=== PATIENT | male | born 1935 | race Caucasian/White ===

== ENCOUNTER → 2020-01-09 | Outpatient (CLI) | payer MEDICARE, BC ==
--- NOTE | 2020-01-09 19:04 | XCELERA REPORT ---
[address] [address] Transthoracic Echocardiogram Report Name: ANAYA YEUNG Age: 84 yrs Gender: Male : 1935 Patient Status: Outpatient Patient Location: Study Date: 01/09/2020 03:16 PM History: Pre-op CVS AVR HTN Height: 70 in Weight: 160 lb BSA: 1.9 m2 Procedure: A complete two-dimensional transthoracic echocardiogram was performed (2D, M-mode, spectral and color flow Doppler). The study was technically difficult with many images being suboptimal in quality. Reason For Study: HTN, PROSTHETIC HEART VALVE Previous Evaluation: No previous studies were available. History: Pre-op CVS AVR HTN. Ordering Physician: ELIJAH WOLFF Performed By: Vicki Greene Interpretation Summary The study was technically difficult with many images being suboptimal in quality. Left ventricular systolic function is low normal. The Ejection Fraction estimate is 50-55% The right ventricular systolic function is normal. There is mild to moderate mitral stenosis The gradients through the prosthetic aortic valve are increased for this type of valve suggesting mild stenosis There is a trace amount of tricuspid regurgitation MMode/2D Measurements & Calculations RVDd: 2.6 cm LVIDd: 4.1 cm FS: 28.0 % Ao root diam: 3.3 cm IVSd: 1.1 cm LVIDs: 2.9 cm EDV(Teich): 72.9 ml Ao root area: 8.8 cm2 LVPWd: 0.98 cm ESV(Teich): 33.1 ml EF(Teich): 54.7 % Doppler Measurements & Calculations MV E max magaly: MV dec slope: Ao V2 max: LV V1 max P.6 cm/sec 404.5 cm/sec2 319.5 cm/sec 9.1 mmHg MV dec time: Ao max PG: LV V1 mean P.31 sec 40.8 mmHg 6.1 mmHg Ao V2 mean: LV V1 max: 212.3 cm/sec 150.9 cm/sec Ao mean PG: LV V1 mean: 22.0 mmHg 117.4 cm/sec Ao V2 VTI: 52.5 cmLV V1 VTI: 29.1 cm PA V2 max: TR max magaly: 89.1 cm/sec 236.9 cm/sec PA max P.2 mmHg TR max P.6 mmHg Left Ventricle The left ventricle is normal in size. There is moderate concentric left ventricular hypertrophy. Left ventricular systolic function is low normal. The Ejection Fraction estimate is 50-55%. LV diastolic function not assessed. Regional wall motion abnormalities cannot be excluded due to limited visualization. Right Ventricle The right ventricle is normal size. There is a pacemaker lead in the right ventricle. The right ventricular systolic function is normal. Atria The right atrium is normal. There is a catheter/pacemaker lead seen in the right atrium. The left atrium is mildly dilated. Mitral Valve There is mild to moderate mitral annular calcification. There is mild mitral leaflet calcification. There is mild to moderate mitral stenosis. Mean PG not provided. Valve looks stenotic. MVA b y PHT 2.5 cm2. There is a mild amount of mitral regurgitation. Aortic Valve There is a bioprosthetic aortic valve. AoV=3.19 m/s Mean PG=22 mm Hg Calcification with mild restriction of mobility. The gradients through the prosthetic aortic valve are increased for this type of valve suggesting mild stenosis. Tricuspid Valve The tricuspid valve is not well visualized secondary to technical limitations. There is a trace amount of tricuspid regurgitation. Tricuspid regurgitation jet envelope not well defined to measure RV systolic pressure accurately. Pulmonic Valve The pulmonic valve is normal in structure and function. There is no pulmonic valvular stenosis. There is a trace amount of pulmonic regurgitation. Great Vessels The aortic root is normal size. The inferior vena cava appeared normal and decreased < 50% with respiration (RAP 10-15 mmHg). Effusions There is no pericardial effusion. : ELIJAH WOLFF Anil
== END ==
LOC: SP 14:34
PROVIDERS: ATTEND Internal Medicine
DX: Z01.810 Encounter for preprocedural cardiovascular examination (principal); I10 Essential (primary) hypertension; Z95.2 Presence of prosthetic heart valve
CPT/HCPCS: 93306

== ENCOUNTER → 2020-02-26 | Outpatient (CLI) | payer MEDICARE, BC ==
[2020-02-26 11:34] LABS: HEMATOCRIT 33.8 % (37.9-51.0); HEMOGLOBIN 11.5 g/dL (13.5-17.0); MEAN CORPUSCULAR HEMOGLOBIN 32.3 pg (27.0-33.4); MEAN CORPUSCULAR HGB CONC 33.9 g/dL (32.0-36.0); MEAN CORPUSCULAR VOLUME 95 fl (80-97); PLATELET COUNT 207 10^3/uL (150-450); RED BLOOD COUNT 3.55 10^6/uL (4.35-5.55); RED CELL DISTRIBUTION WIDTH 13.5 % (11.5-14.0)
[2020-02-26 12:37] LABS: ABSOLUTE LYMPHOCYTES# (MANUAL) 21.2 10^3/uL (0.5-4.7); ABSOLUTE MONOCYTES # (MANUAL) 1.3 10^3/uL (0.1-1.4); BASOPHILS % (MANUAL) 0 % (0-2); EOSINOPHILS % (MANUAL) 0 % (0-6); LYMPHOCYTES % (MANUAL) 63 % (13-45); MONOCYTES % (MANUAL) 4 % (3-13); SEGMENTED NEUTROPHILS % (MAN) 31 % (42-78); TOTAL CELLS COUNTED 100
[2020-02-26 12:38] LABS: SMUDGE CELLS PRESENT
[2020-02-26 12:59] LABS: OVALOCYTES 1+; PLATELET COMMENT ADEQUATE; TOXIC GRANULATION SLIGHT
[2020-02-26 13:00] LABS: PLATELET GIANT PRESENT; PLATELET LARGE PRESENT
[2020-02-26 13:18] LABS: WHITE BLOOD COUNT 32.6 10^3/uL (4.0-10.5)
== END ==
LOC: OD 10:41
PROVIDERS: ATTEND Nurse Practitioner Family
DX: J18.8 Other pneumonia, unspecified organism (principal)
CPT/HCPCS: 36415; 85025

== ENCOUNTER 2020-02-29 08:14 | Emergency (ER) | payer MEDICARE, BC ==
--- NOTE | 2020-02-29 10:01 | ER Document Report ---
ED Medical Screen (RME) - General Chief Complaint: Abnormal Lab Results Stated Complaint: ABNORMAL LABS Primary Care Provider: JOSE LACKEY FNP-C [Primary Care Provider] - Follow up as needed Mode of Arrival: Ambulatory Information source: Patient Notes: 84-year-old male presented to ED for complaint of elevated white count of 1 primary care redrew the blood count. He was diagnosed with pneumonia 2 weeks ago started on antibiotics saw his primary care stomach Saúl is white count was still elevated so she gave him another 2 antibiotics and repeated his blood work and his white count is still 22.6. We will get blood urine chest x-ray and he will be seen by another provider. I have greeted and performed a rapid initial assessment of this patient. A comprehensive ED assessment and evaluation of the patient, analysis of test results and completion of medical decision making process will be conducted by an additional ED providers. TRAVEL OUTSIDE OF THE [place] IN LAST 30 DAYS: No - Related Data Allergies/Adverse Reactions: No Known Allergies Allergy (Verified 02/15/20 07:23) Past Medical History - Social History Frequency of alcohol use: Rare Drug Abuse: None - Past Medical History Cardiac Medical History: Reports: Hx Hypercholesterolemia, Hx Hypertension Pulmonary Medical History: Reports: Hx COPD, Hx Pneumonia Renal/ Medical History: Reports: Hx Benign Prostatic Hyperplasia GI Medical History: Reports: Hx Gastroesophageal Reflux Disease Musculoskeltal Medical History: Reports Hx Arthritis Past Surgical History: Reports: Hx Cardiac Surgery - open heart, Hx Orthopedic Surgery - feet Physical Exam - Vital signs Vitals: Temp Pulse Resp BP Pulse Ox 97.5 F 71 16 170/74 H 99 02/29/20 08:19 02/29/20 08:19 02/29/20 08:19 02/29/20 08:19 02/29/20 08:19 Course - Vital Signs Vital signs: Temp Pulse Resp BP Pulse Ox 97.5 F 71 16 170/74 H 99 02/29/20 08:19 02/29/20 08:19 02/29/20 08:19 02/29/20 08:19 02/29/20 08:19 Doctor's Discharge - Discharge Referrals: JOSE LACKEY FNP-C [Primary Care Provider] - Follow up as needed
[2020-02-29 10:42] LABS: HEMATOCRIT 33.2 % (37.9-51.0); HEMOGLOBIN 11.2 g/dL (13.5-17.0); MEAN CORPUSCULAR HEMOGLOBIN 32.1 pg (27.0-33.4); MEAN CORPUSCULAR HGB CONC 33.7 g/dL (32.0-36.0); MEAN CORPUSCULAR VOLUME 95 fl (80-97); PLATELET COUNT 180 10^3/uL (150-450); RED BLOOD COUNT 3.48 10^6/uL (4.35-5.55); RED CELL DISTRIBUTION WIDTH 14.2 % (11.5-14.0)
[2020-02-29 10:59] LABS: ALKALINE PHOSPHATASE 66 U/L (38-126); ANION GAP 6 (5-19); ASPARTATE AMINO TRANSFERASE 32 U/L (17-59); BILIRUBIN,DIRECT 0.2 mg/dL (0.0-0.4); BILIRUBIN,TOTAL 0.9 mg/dL (0.2-1.3); BLOOD UREA NITROGEN 24 mg/dL (7-20); CALCIUM 9.4 mg/dL (8.4-10.2); CARBON DIOXIDE 30 mmol/L (22-30); CHLORIDE 104 mmol/L (98-107); GLUCOSE 94 mg/dL (75-110); POTASSIUM 4.8 mmol/L (3.6-5.0)
--- NOTE | 2020-02-29 11:16 | RADIOLOGY REPORT (SQ) ---
EXAM DESCRIPTION: CHEST 2 VIEWS IMAGES COMPLETED DATE/TIME: 02/29/2020 10:24 am REASON FOR STUDY: Cough congestion elevated white count pneumonia COMPARISON: 02/13/2020 CT imaging EXAM PARAMETERS: NUMBER OF VIEWS: two views TECHNIQUE: Digital Frontal and Lateral radiographic views of the chest acquired. RADIATION DOSE: NA LIMITATIONS: none FINDINGS: LUNGS AND PLEURA: A previously demonstrated anterior segment of the left lower lobe consol idation is no longer demonstrated. Blunting of the left costophrenic angle persists. No pneumothora x. MEDIASTINUM AND HILAR STRUCTURES: No masses or contour abnormalities. HEART AND VASCULAR STRUCTURES: Heart normal size. No evidence for failure. BONES: No acute findings. HARDWARE: Midline surgical changes. Transvenous pacer. OTHER: No other significant finding. IMPRESSION: Significant improvement in the appearance of a previously demonstrated left lower lobe c onsolidation (given differences in modality). No acute findings. TECHNICAL DOCUMENTATION: JOB ID: [id number] 2010 [employer]- All Rights Reserved Reading location - IP/workstation name: [email or web address]
[2020-02-29 11:37] LABS: ABSOLUTE LYMPHOCYTES# (MANUAL) 22.4 10^3/uL (0.5-4.7); ABSOLUTE MONOCYTES # (MANUAL) 0.3 10^3/uL (0.1-1.4); BASOPHILS % (MANUAL) 0 % (0-2); EOSINOPHILS % (MANUAL) 1 % (0-6); LYMPHOCYTES % (MANUAL) 68 % (13-45); MONOCYTES % (MANUAL) 1 % (3-13); SEGMENTED NEUTROPHILS % (MAN) 28 % (42-78); TOTAL CELLS COUNTED 100
[2020-02-29 11:39] LABS: ANISOCYTOSIS SLIGHT; OVALOCYTES 1+; SMUDGE CELLS PRESENT
[2020-02-29 11:40] LABS: PLATELET COMMENT ADEQUATE; PLATELET LARGE PRESENT
[2020-02-29] MEDS ORDERED: NORMAL SALINE 1000 ML 1,000 ML IV ONE ×3 (13:13→14:38)
[2020-02-29 14:23] LABS: APPEARANCE,URINE CLEAR; BILIRUBIN,URINE NEGATIVE (NEGATIVE); COLOR,URINE STRAW; GLUCOSE, URINE NEGATIVE (NEGATIVE); KETONES,URINE NEGATIVE (NEGATIVE); LEUKOCYTE ESTERASE,URINE NEGATIVE (NEGATIVE); NITRITE,URINE NEGATIVE (NEGATIVE); PROTEIN,URINE 30 mg/dL (NEGATIVE); URINE SPECIFIC GRAVITY 1.008; UROBILINOGEN,URINE NEGATIVE mg/dL (<2.0)
--- NOTE | 2020-02-29 15:17 | RADIOLOGY REPORT (SQ) ---
EXAM DESCRIPTION: CT ABD/PELVIS WITH IV ONLY; CT CHEST WITH IMAGES COMPLETED DATE/TIME: 02/29/2020 1:12 pm REASON FOR STUDY: Bilateral inguinal hernia, elevated wbc, lymphocyt; elevated WBC lymphocytes/ rece nt pneumonia COMPARISON: CT chest, abdomen and pelvis, 02/13/2020. CONTRAST TYPE AND DOSE: contrast/concentration: Isovue 350.00 mmol/ml; Total Contrast Delivered: 80. 0 ml; Total Saline Delivered: 55.0 ml RENAL FUNCTION: GFR > 60. TECHNIQUE: CT scan of the chest performed using helical scanning technique with dynamic intravenous contrast injection. Images reviewed with lung, soft tissue and bone windows. Reconstructed coronal a nd sagittal MPR images reviewed. All images stored on PACS. CT scan of the abdomen and pelvis performed with intravenous and oral contrast using helical scanning technique with dynamic intravenous contrast injection. Images reviewed with lung, soft tissue and b one windows. Reconstructed coronal and sagittal MPR images reviewed. Delayed images for evaluation of the urinary system also acquired and evaluated. All images stored on PACS. All CT scanners at this facility use dose modulation, iterative reconstruction, and/or weight based d osing when appropriate to reduce radiation dose to as low as reasonably achievable (ALARA). [facility]: Dose Right [facility]: CareDose [facility]: Dose Right [facility]: Teradose 4D [facility]: [employer] Technologies RADIATION DOSE: CT Rad equipment meets quality standard of care and radiation dose reduction techniq ues were employed. CTDIvol: 7.1 - 7.5 mGy. DLP: 1069 mGy-cm. . LIMITATIONS: None. FINDINGS: CHEST: AXILLAE: No adenopathy. CHEST WALL: Mild gynecomastia. No masses. No subcutaneous air. LUNGS: Trachea has normal caliber and appearance. Background mild pulmonary emphysema is stable. Th ere is improving aeration at the left lung base with mild persistent tree-in-bud and confluent consol idation. Trace left effusion, stable from prior. No new consolidation or ground-glass attenuation. Couple of scattered calcified granulomas are unchanged. No suspicious pulmonary nodules. PLEURA: Trace left effusion. No pneumothorax. THYROID: No masses or significant asymmetry. HILAR AND MEDIASTINAL STRUCTURES: No identified masses or abnormal nodes. AORTA AND GREAT VESSELS: No aneurysm. No dissection. PULMONARY ARTERIES: There is poor opacification of the pulmonary arteries. Within the limits of the examination there is no evidence of pulmonary embolism. HEART: Normal size. No pericardial effusion. HARDWARE AND LIFELINES: Left infraclavicular pacemaker with intact lead wires. Postoperative changes of prior CABG. BONES: No suspicious bone lesions. Spondylosis and degenerative disc disease, stable. OTHER: No other significant finding. ABDOMEN AND PELVIS: LIVER: Liver has normal size and contour. Benign hepatic cyst in the left hepatic lobe is stable. N o suspicious hepatic mass. Hepatic and portal veins are patent. No biliary ductal dilation. SPLEEN: Normal size. No focal lesions. PANCREAS: No masses. No significant calcifications. No adjacent inflammation or peripancreatic flui d collections. Pancreatic duct not dilated. GALLBLADDER: No identified stones by CT criteria. No inflammatory changes to suggest cholecystitis. ADRENAL GLANDS: No significant masses or asymmetry. RIGHT KIDNEY AND URETER: No solid masses. No significant calcifications. No hydronephrosis or hyd roureter. LEFT KIDNEY AND URETER: No solid masses. Nonobstructing 7 mm left renal calculus unchanged from aixa or. No obstructing renal or ureteral calculus. No hydronephrosis or hydroureter. AORTA AND VESSELS: No aneurysm. No dissection. Renal arteries, SMA, celiac without stenosis. RETROPERITONEUM: No retroperitoneal adenopathy, hemorrhage or masses. LARGE AND SMALL BOWEL: Moderate amount of stool throughout the colon. No bowel obstruction. No hector l wall thickening or inflammatory change. APPENDIX: Not visualized. ABDOMINAL WALL: There is a left inguinal hernia containing the sigmoid colon. No fluid in the hernia sac or evidence of colonic obstruction. PERITONEAL CAVITY: No free air. No free fluid. No peritoneal implants or masses. PELVIS: Prostate is enlarged measuring 5.3 x 4.5 cm. Mild mass effect on the urinary bladder. Bladd er has normal contour otherwise. No bladder wall thickening. No pelvic adenopathy or free fluid. C alcified pelvic phleboliths. BONES: Spondylosis and degenerative disc disease. No suspicious bone lesions. Osteoarthritis bilate ral hips. OTHER: No other significant finding. IMPRESSION: 1. Improving aeration at the left lung base with mild persistent residual pneumonia. Trace left effu christopher. 2. Left inguinal hernia contains colon. No bowel obstruction or evidence of incarceration. 3. Moderate stool in the colon and rectum which can be seen with constipation. Clinical correlation. 4. Enlarged prostate gland. Mass effect on the urinary bladder. 5. Nonobstructing 7 mm left renal calculus. No hydronephrosis. TECHNICAL DOCUMENTATION: JOB ID: [id number] Quality ID # [id number]: Final reports with documentation of one or more dose reduction techniques (e.g., Au tomated exposure control, adjustment of the mA and/or kV according to patient size, use of iterative reconstruction technique) 2010 [employer]- All Rights Reserved Reading location - IP/workstation name: [email or web address]
--- NOTE | 2020-02-29 16:07 | ER Document Report ---
Entered by SHAYLA BAJWA SCRIBE 02/29/20 1305 Acting as scribe for:AMPARO ANTUNEZ MD ED General - General Chief Complaint: Abnormal Lab Results Stated Complaint: ABNORMAL LABS Time Seen by Provider: 02/29/20 11:54 Primary Care Provider: JOSE LACKEY FNP-C [Primary Care Provider] - Follow up as needed Mode of Arrival: Ambulatory Information source: Patient Notes: This 84 year old male patient presents to the ED today for evaluation of abnormal lab results. Niece at bedside reports that the patient's PCP called and told the patient come to the ED for evaluation due to having a WBC of 32.6 from blood drawn on 02/25. Patient was diagnosed with pneumonia x2 weeks ago and was started on oral antibiotics, last dose was last night. Patient denies any shortness of breath, fever, chills, night sweats, or unexplained weight loss. He mentions that he does not sleep very well and that he is always tired. TRAVEL OUTSIDE OF THE [place] IN LAST 30 DAYS: No - Related Data Allergies/Adverse Reactions: No Known Allergies Allergy (Verified 02/15/20 07:23) Past Medical History - General Information source: Patient, [facility] Records - Social History Smoking Status: Former Smoker Smoking Education Provided: No Frequency of alcohol use: Rare Drug Abuse: None Family History: Reviewed & Not Pertinent - Past Medical History Cardiac Medical History: Reports: Hx Hypercholesterolemia, Hx Hypertension Pulmonary Medical History: Reports: Hx COPD, Hx Pneumonia Renal/ Medical History: Reports: Hx Benign Prostatic Hyperplasia GI Medical History: Reports: Hx Gastroesophageal Reflux Disease Musculoskeletal Medical History: Reports Hx Arthritis Past Surgical History: Reports: Hx Open Heart Surgery, Hx Orthopedic Surgery - feet Review of Systems - Review of Systems Constitutional: See HPI, Recent illness. denies: Chills, Fever, Weight loss EENT: No symptoms reported Cardiovascular: No symptoms reported Respiratory: See HPI. denies: Short of breath Gastrointestinal: No symptoms reported Genitourinary: No symptoms reported Male Genitourinary: No symptoms reported Musculoskeletal: No symptoms reported Skin: No symptoms reported Hematologic/Lymphatic: No symptoms reported Neurological/Psychological: No symptoms reported -: Yes All other systems reviewed and negative Physical Exam - Vital signs Vitals: Temp Pulse Resp BP Pulse Ox 97.5 F 71 16 170/74 H 99 02/29/20 08:19 02/29/20 08:19 02/29/20 08:19 02/29/20 08:19 02/29/20 08:19 - General General appearance: Alert, Other - Nontoxic appearance In distress: None - HEENT Head: Normocephalic, Atraumatic Eyes: Normal Pupils: PERRL - Respiratory Respiratory status: No respiratory distress Chest status: Nontender Breath sounds: Normal Chest palpation: Normal - Cardiovascular Rhythm: Regular Heart sounds: Normal auscultation Murmur: No Friction rub: No Gallop: None auscultated - Abdominal Inspection: Normal Distension: No distension Bowel sounds: Normal Tenderness: Nontender - Abdomen soft Organomegaly: No organomegaly - Back Back: Normal, Nontender - Extremities General upper extremity: Normal inspection General lower extremity: Normal inspection. No: Edema - Neurological Neuro grossly intact: Yes Orientation: AAOx4 Saad Coma Scale Eye Opening: Spontaneous Saad Coma Scale Verbal: Oriented Saad Coma Scale Motor: Obeys Commands Saad Coma Scale Total: 15 - Psychological Associated symptoms: Normal affect, Normal mood - Skin Skin Temperature: Warm Skin Moisture: Dry Skin Color: Normal Course - Re-evaluation Re-evalutation: 02/29/20 16:00 Patient resting comfortably not showing any signs of distress. - Vital Signs Vital signs: Temp Pulse Resp BP Pulse Ox 98.1 F 71 20 154/82 H 99 02/29/20 14:14 02/29/20 08:19 02/29/20 14:14 02/29/20 14:14 02/29/20 14:14 02/29/20 16:00 Vital signs stable - Laboratory Results Result Diagrams: 02/29/20 10:05 02/29/20 10:05 Laboratory Results Interpreted: 02/29/20 02/29/20 02/29/20 10:05 10:05 13:15 WBC 32.0 H* RBC 3.48 L Hgb 11.2 L Hct 33.2 L RDW 14.2 H Seg Neuts % (Manual) 28 L Lymphocytes % (Manual) 68 H Monocytes % (Manual) 1 L Abs Neuts (Manual) 9.0 H Abs Lymphs (Manual) 22.4 H BUN 24 H Urine Protein 30 H 02/29/20 16:01 Laboratory shows a 32,000 white count H&H is 11 and 33 with a BUN of 24 and urine protein 30. Most likely patient has chronic lymphocytic leukemia. Work- up today shows that there is no solid organ involvement showing increased lymph nodes liver or spleen or lymph node enlargement. Discussed case with Dr. Lauro awan who will follow up with patient as an outpatient. Critical Laboratory Results Reviewed: Yes Attending or Supervising Physician who Reviewed Labs: AMPARO ANTUNEZ Radiology Results Radiology Results Interpreted: 02/29/20 15:45 Abdomen/Pelvis CT 02/29/20 00:00 IMPRESSION: 1. Improving aeration at the left lung base with mild persistent residual pneumonia. Trace left effusion. 2. Left inguinal hernia contains colon. No bowel obstruction or evidence of inc arceration. 3. Moderate stool in the colon and rectum which can be seen with constipation. Clinical correlation. 4. Enlarged prostate gland. Mass effect on the urinary bladder. 5. Nonobstructing 7 mm left renal calculus. No hydronephrosis. Chest X-Ray 02/29/20 09:59 IMPRESSION: Significant improvement in the appearance of a previously demonstrated left lower lobe consolidation (given differences in modality). No acute findings. Chest CT 02/29/20 13:04 IMPRESSION: 1. Improving aeration at the left lung base with mild persistent residual pneumonia. Trace left effusion. 2. Left inguinal hernia contains colon. No bowel obstruction or evidence of incarceration. 3. Moderate stool in the colon and rectum which can be seen with constipation. Clinical correlation. 4. Enlarged prostate gland. Mass effect on the urinary bladder. 5. Nonobstructing 7 mm left renal calculus. No hydronephrosis. 02/29/20 16:02 Chest x-ray shows no significant findings patient has significant improvement of left lower lobe consolidation. No acute findings today. Chest CT chest abdomen pelvis shows improvement in aeration of the left lung base left inguinal hernia contains: No bowel obstruction or incarceration moderate stool in the colon constipation most likely enlarged prostate gland mass-effect on the urinary bladder nonobstructing 7 mm left renal calculus no hydronephrosis. Critical Radiology Results Reviewed: No Critical Results - Consults Dr. Rodrigues, Oncologist Time consulted: 15:45 Consulted provider: follow-up in office Discharge - Discharge Clinical Impression: Leukocytosis, CLL (chronic lymphocytic leukemia) Condition: Stable Disposition: HOME, SELF-CARE Additional Instructions: Today's exam showed that the pneumonia in the left base has improved significantly. The elevated white blood cell count is unrelated to the pneumonia. Most likely this is chronic lymphocytic leukemia. Patient reports that he was told he had a leukemia when he was in [place]. CT scan of chest abdomen and pelvis today showed no solid organ involvement no retroperitoneal or lymph node involvement and chest also was clear of any kind lymphoma involvement. Patient has no fever is hemodynamically stable and nontoxic at this time patient is to be discharged home to be followed up with Dr. Lauro awan, server administrator/oncologist. Dr. Lauro awan will call patient to set up this appointmen t. There are no new prescriptions today. Referrals: JOSE LACKEY, TEZ-C [Primary Care Provider] - Follow up as needed TORY RODRIGUES MD [ACTIVE STAFF] - Follow up in 1 week I personally performed the services described in the documentation, reviewed and edited the documentation which was dictated to the scribe in my presence, and it accurately records my words and actions.
[2020-02-29 16:11] VITALS: BP 172/88
== END 2020-02-29 16:19 | disposition home or self-care (01) ==
LOC: ER 08:14
DX: D72.829 Elevated white blood cell count, unspecified (principal); C91.10 Chronic lymphocytic leukemia of B-cell type not having achieved remission; E78.00 Pure hypercholesterolemia, unspecified; I10 Essential (primary) hypertension; J44.9 Chronic obstructive pulmonary disease, unspecified
CPT/HCPCS: 99285; 96360; 36415; 87040; 83615; 85025; 80053; 81001; 71046; 71260; 74177; J7030

== ENCOUNTER 2020-03-02 08:17 | Emergency (ER) | payer MEDICARE, BC ==
[2020-03-02] MEDS ORDERED: NORMAL SALINE 1000 ML 1,000 ML IV ONE (09:56)
[2020-03-02 10:54] LABS: HEMOGLOBIN 9.7 g/dL (13.5-17.0); MEAN CORPUSCULAR HEMOGLOBIN 32.7 pg (27.0-33.4); MEAN CORPUSCULAR HGB CONC 34.6 g/dL (32.0-36.0); MEAN CORPUSCULAR VOLUME 95 fl (80-97); PLATELET COUNT 145 10^3/uL (150-450); RED BLOOD COUNT 2.96 10^6/uL (4.35-5.55); RED CELL DISTRIBUTION WIDTH 13.8 % (11.5-14.0); WHITE BLOOD COUNT 22.1 10^3/uL (4.0-10.5)
[2020-03-02 10:57] LABS: INTERNATIONAL RATION (INR) 1.48; PARTIAL THROMBOPLASTIN TIME 35.3 SEC (23.5-35.8); PROTHROMBIN TIME 18.1 SEC (11.4-15.4)
[2020-03-02 11:19] LABS: ABSOLUTE LYMPHOCYTES# (MANUAL) 8.2 10^3/uL (0.5-4.7); ABSOLUTE MONOCYTES # (MANUAL) 0.7 10^3/uL (0.1-1.4); BASOPHILS % (MANUAL) 0 % (0-2); EOSINOPHILS % (MANUAL) 1 % (0-6); LYMPHOCYTES % (MANUAL) 35 % (13-45); MONOCYTES % (MANUAL) 3 % (3-13); PLATELET COMMENT DECREASED; RBC MORPHOLOGY COMMENT NORMO-CYTIC/CHROMIC; SEGMENTED NEUTROPHILS % (MAN) 59 % (42-78); SMUDGE CELLS PRESENT; TOTAL CELLS COUNTED 100
[2020-03-02 11:22] LABS: ALBUMIN 3.4 g/dL (3.5-5.0); ALKALINE PHOSPHATASE 58 U/L (38-126); ANION GAP 6 (5-19); ASPARTATE AMINO TRANSFERASE 32 U/L (17-59); BILIRUBIN,DIRECT 0.2 mg/dL (0.0-0.4); BILIRUBIN,TOTAL 0.9 mg/dL (0.2-1.3); BLOOD UREA NITROGEN 17 mg/dL (7-20); CALCIUM 8.9 mg/dL (8.4-10.2); CARBON DIOXIDE 28 mmol/L (22-30); CHLORIDE 104 mmol/L (98-107); GLUCOSE 93 mg/dL (75-110); POTASSIUM 4.4 mmol/L (3.6-5.0); TOTAL PROTEIN 5.9 g/dL (6.3-8.2)
--- NOTE | 2020-03-02 11:49 | RADIOLOGY REPORT (SQ) ---
EXAM DESCRIPTION: U/S RETROPERITON (RENAL/AORTA) IMAGES COMPLETED DATE/TIME: 03/02/2020 11:31 am REASON FOR STUDY: hematuria COMPARISON: None. TECHNIQUE: Dynamic and static grayscale images acquired of the kidneys and bladder and recorded on P ACS. Additional selected color Doppler and spectral images recorded. LIMITATIONS: None. FINDINGS: RIGHT KIDNEY: Normal size measuring 10.6 cm. Normal echogenicity. No solid or suspicious m asses. No hydronephrosis. No calcifications. LEFT KIDNEY: Normal size measuring 10.7 cm. Normal echogenicity. No solid or suspicious masses. No h ydronephrosis. Nonobstructing stone measuring 8 mm. BLADDER: Avascular hypoechoic structure along the posterior bladder measuring 3.8 x 5.5 x 2.6 cm, pos sibly clot. Partially visualized large prostate. OTHER FINDINGS: No other significant finding. IMPRESSION: 1. Avascular heterogeneous hypoechoic structure along the posterior bladder measuring 3 .8 x 5.5 x 2.6 cm, likely clot although mass lesion is not entirely excluded. Cystoscopy could be co nsidered for further characterization. 2. Nonobstructing 8 mm left-sided stone. No hydronephrosis. TECHNICAL DOCUMENTATION: JOB ID: [id number] 2010 [employer]- All Rights Reserved Reading location - IP/workstation name: [email or web address]
[2020-03-02 13:10] LABS: BILIRUBIN,URINE NEGATIVE (NEGATIVE); GLUCOSE, URINE 50 mg/dL (NEGATIVE); KETONES,URINE NEGATIVE (NEGATIVE); LEUKOCYTE ESTERASE,URINE NEGATIVE (NEGATIVE); NITRITE,URINE NEGATIVE (NEGATIVE); PROTEIN,URINE 100 mg/dL (NEGATIVE); URINE SPECIFIC GRAVITY 1.008; UROBILINOGEN,URINE NEGATIVE mg/dL (<2.0)
[2020-03-02 13:11] LABS: APPEARANCE,URINE CLOUDY; COLOR,URINE RED
[2020-03-02] MEDS ORDERED: CIPROFLOXACIN HCL 500 MG TABLET PO ONE (16:16)
[2020-03-02] MEDS ORDERED: FINASTERIDE 5 MG TABLET PO ONE (16:23)
--- NOTE | 2020-03-02 16:40 | ER Document Report ---
Entered by BASHIR BELCHER SCRIBE 03/02/20 1053 Acting as scribe for:AMPARO ANTUNEZ MD ED General - General Chief Complaint: Penile Bleeding Stated Complaint: PENILE BLEEDING Time Seen by Provider: 03/02/20 09:08 Primary Care Provider: JOSE LACKEY FNP-C [Primary Care Provider] - Follow up as needed Information source: Patient Notes: This 84 year old male patient presents to the emergency department today with complaints of painful urination with bleeding that began last night. Patient states this has never happened before. Patient states he is on Xarelto (15 years) and does not report any problems from this. Denies bleeding gums, increased bruising, rectal bleeding, abdominal pain, N/V, back pain, flank pain, or fever. 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 This recent diagnosis has not yet been confirmed and no organs seem to be involved. TRAVEL OUTSIDE OF THE [place] IN LAST 30 DAYS: No - Related Data Allergies/Adverse Reactions: No Known Allergies Allergy (Verified 02/15/20 07:23) Home Medications: BVitamin, Metoprolol, Liinzess, Gabapentin, Xarelto, Ibersartan, Tamsulosin, Montelukast, Pulmicort Past Medical History - General Information source: Patient, [facility] Records - Social History Smoking Status: Never Smoker Cigarette use (# per day): No Drug Abuse: None Family History: Reviewed & Not Pertinent - Past Medical History Cardiac Medical History: Reports: Hx Hypercholesterolemia, Hx Hypertension Pulmonary Medical History: Reports: Hx COPD, Hx Pneumonia Renal/ Medical History: Reports: Hx Benign Prostatic Hyperplasia GI Medical History: Reports: Hx Gastroesophageal Reflux Disease Musculoskeletal Medical History: Reports Hx Arthritis Past Surgical History: Reports: Hx Cardiac Surgery - pacemaker, Hx Open Heart Surgery, Hx Orthopedic Surgery - feet Review of Systems - Review of Systems Constitutional: See HPI. denies: Fever EENT: No symptoms reported Cardiovascular: No symptoms reported Respiratory: No symptoms reported Gastrointestinal: See HPI. denies: Abdominal pain, Nausea, Vomiting, Rectal bleeding Genitourinary: See HPI, Pain. denies: Flank pain Male Genitourinary: See HPI Musculoskeletal: See HPI. denies: Back pain Skin: See HPI Hematologic/Lymphatic: See HPI. denies: Easy bruising, Other - gum bleeding Neurological/Psychological: No symptoms reported -: Yes All other systems reviewed and negative Physical Exam - Vital signs Vitals: Temp Pulse Resp BP Pulse Ox 97.6 F 89 16 123/73 99 03/02/20 08:29 03/02/20 08:29 03/02/20 08:29 03/02/20 08:29 03/02/20 08:29 - General Notes: Alert. Appears non-toxic. - HEENT Head: Normocephalic, Atraumatic Eyes: Normal Pupils: PERRL - Respiratory Respiratory status: No respiratory distress Chest status: Nontender Breath sounds: Normal Chest palpation: Normal - Cardiovascular Rhythm: Regular Heart sounds: Normal auscultation Murmur: No - Abdominal Inspection: Normal, Other - Soft Distension: No distension Bowel sounds: Normal Tenderness: Nontender - Rectal Prostate: Enlarged, Other - Firm. No: Tender Notes: Stool is brown and guaiac negative. - Back Back: Other - No midline tenderness. No: CVA tenderness - Extremities General upper extremity: Normal ROM General lower extremity: Normal inspection, Normal ROM. No: Edema Notes: Old bruises to the right upper extremity. Patient states this is at baseline. - Neurological Neuro grossly intact: Yes Cognition: Normal Orientation: AAOx4 Saad Coma Scale Eye Opening: Spontaneous Saad Coma Scale Verbal: Oriented Saad Coma Scale Motor: Obeys Commands Saad Coma Scale Total: 15 Speech: Normal Motor strength normal: LUE, RUE, LLE, RLE Sensory: Normal - Psychological Associated symptoms: Normal affect, Normal mood - Skin Skin Temperature: Warm Skin Moisture: Dry Skin Color: Normal Course - Re-evaluation Re-evalutation: 03/02/20 16:18 Patient resting comfortably at this time. Patient is straining red-colored urine at this time through the condom catheter and has decompressed his bladder. Bladder scan showed only 64 mL of urine in the bladder when randomly tested. Patient denies any nausea vomiting fever or pain at this time. Consultation with Dr. Johnson urologist at [facility] and after discussion it was determined that patient can be discharged home as long as he can drink water and stay well-hydrated and try to avoid having clots can continue to aggregate and cause urinary blockage. Also recommended we begin after urine culture antibiotic to prevent urinary tract infection. And patient deserves a follow-up with the urologist inasmuch as currently to my knowledge has not been followed by 1. So Dr. Johnson agreed to see patient as an outpatient. He also recommended that patient be placed on Proscar or finasteride to help shrink prostate and patient is currently on Flomax on a daily basis. I plan to tell patient to discontinue his Flomax and to begin Proscar on a daily basis. - Vital Signs Vital signs: Temp Pulse Resp BP Pulse Ox 97.6 F 89 16 123/73 99 03/02/20 08:29 03/02/20 08:29 03/02/20 08:29 03/02/20 08:29 03/02/20 08:29 - Laboratory Results Result Diagrams: 03/02/20 10:30 03/02/20 10:30 Laboratory Results Interpreted: 03/02/20 03/02/20 03/02/20 10:30 10:30 10:30 WBC 22.1 H RBC 2.96 L Hgb 9.7 L Hct 28.0 L Plt Count 145 L Abs Neuts (Manual) 13.0 H Abs Lymphs (Manual) 8.2 H PT 18.1 H Total Protein 5.9 L Albumin 3.4 L Urine Protein Urine Glucose (UA) Urine Blood 03/02/20 12:35 WBC RBC Hgb Hct Plt Count Abs Neuts (Manual) Abs Lymphs (Manual) PT Total Protein Albumin Urine Protein 100 H Urine Glucose (UA) 50 H Urine Blood MODERATE H Patient is moderate blood in his urine hemoglobin is 9.7 hematocrit 28 22,000 white count which is down from 32,000 from 2 days ago. Critical Laboratory Results Reviewed: No Critical Results - Patient does not have hematuria - Radiology Results Radiology Results Interpreted: 03/02/20 16:30 Renal Ultrasound 03/02/20 09:54 IMPRESSION: 1. Avascular heterogeneous hypoechoic structure along the posterior bladder measuring 3.8 x 5.5 x 2.6 cm, likely clot although mass lesion is not entirely excluded. Cystoscopy could be considered for further characterization. 2. Nonobstructing 8 mm left-sided stone. No hydronephrosis. Renal ultrasound shows an avascular heterogeneous hyperechoic structure along the posterior bladder likely a clot. A nonobstructing 8 mm left-sided stone with no hydronephrosis. Critical Radiology Results Reviewed: No Critical Results - Him 1 or 2 days the patient has chosen to leave the facility against medical advice. The relevant issues have been reviewed and discussed with the patient and family at the bedside. At the time of this assessment there is no indication for involuntary commitment. The patient is alert, oriented, and Discharge - Discharge Clinical Impression: Hematuria, CLL (chronic lymphocytic leukemia), Enlarged prostate Disposition: HOME, SELF-CARE Additional Instructions: Hematuria Hematuria, or blood in your urine, can be caused by minor medical problems, such as a bladder infection, or by more serious medical conditions, such as kidney stones or even tumors of the bladder or kidney. If the cause of the hematuria is known (such as a bladder infection) and can be treated, it may not need further evaluation. If the cause is not known, it will usually require further evaluation by a specialist, such as a urologist. In particular, unexplained hematuria in the older patient must be evaluated to rule out a serious condition, such as a bladder or kidney tumor. If the hematuria worsens or you are passing clots and then are unable to u rinate, you should be re-evaluated. A catheter may need to be placed in the bladder to permit passage of urine. If you develop high fever, severe pain, or other new or worsening symptoms, return to the Emergency Department for re- evaluation. You are to begin Proscar 5 mg tablet once a day. And also discontinue taking Flomax which you have been taking for routine on a daily basis to help increase flow of urine. Proscar will work best in terms of shrinking your prostate which may be part of the problem you are having now with the hematuria. We are also putting you on an antibiotic a urine culture has been done. And prescriptions for both Proscar and Cipro are being sent to your pharmacy. You also are going to follow-up with Dr. Johnson urologist from the [facility] urology group. 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 Cultures done, Cipro and Proscar prescribed as discussed. ) I personally performed the services described in the documentation, reviewed and edited the documentation which was dictated to the scribe in my presence, and it accurately records my words and actions.
[2020-03-02 17:45] VITALS: BP 145/90
== END 2020-03-02 17:44 | disposition home or self-care (01) ==
LOC: ER 08:17
DX: R31.9 Hematuria, unspecified (principal); C91.10 Chronic lymphocytic leukemia of B-cell type not having achieved remission; N40.0 Benign prostatic hyperplasia without lower urinary tract symptoms; R30.0 Dysuria; Z79.01 Long term (current) use of anticoagulants; E78.00 Pure hypercholesterolemia, unspecified; I10 Essential (primary) hypertension; J44.9 Chronic obstructive pulmonary disease, unspecified; Z95.0 Presence of cardiac pacemaker
CPT/HCPCS: 99285; 96360; 96361; 86900; 86901; 36415; 87086; 86850; 85025; 85610; 85730; 82270; 80053; 81001; 76770; A9270 ×2; J7030

== ENCOUNTER 2020-03-03 02:12 | Emergency (ER) | payer MEDICARE, BC ==
[2020-03-03 06:26] LABS: APPEARANCE,URINE SLIGHTLY-CLOUDY; BILIRUBIN,URINE NEGATIVE (NEGATIVE); COLOR,URINE YELLOW; GLUCOSE, URINE NEGATIVE (NEGATIVE); KETONES,URINE NEGATIVE (NEGATIVE); LEUKOCYTE ESTERASE,URINE SMALL (NEGATIVE); NITRITE,URINE NEGATIVE (NEGATIVE); PROTEIN,URINE 30 mg/dL (NEGATIVE); URINE SPECIFIC GRAVITY 1.002; UROBILINOGEN,URINE NEGATIVE mg/dL (<2.0)
[2020-03-03 07:00] LABS: HEMATOCRIT 26.9 % (37.9-51.0); HEMOGLOBIN 9.3 g/dL (13.5-17.0); MEAN CORPUSCULAR HEMOGLOBIN 32.5 pg (27.0-33.4); MEAN CORPUSCULAR HGB CONC 34.4 g/dL (32.0-36.0); MEAN CORPUSCULAR VOLUME 94 fl (80-97); PLATELET COUNT 142 10^3/uL (150-450); RED BLOOD COUNT 2.85 10^6/uL (4.35-5.55); RED CELL DISTRIBUTION WIDTH 14.3 % (11.5-14.0)
[2020-03-03 07:16] LABS: BLOOD UREA NITROGEN 19 mg/dL (7-20); CALCIUM 8.6 mg/dL (8.4-10.2); CARBON DIOXIDE 27 mmol/L (22-30); CHLORIDE 100 mmol/L (98-107); GLUCOSE 93 mg/dL (75-110); POTASSIUM 4.7 mmol/L (3.6-5.0)
[2020-03-03 07:22] LABS: ANION GAP 5 (5-19)
[2020-03-03 07:25] LABS: BASOPHILS % (MANUAL) 0 % (0-2); EOSINOPHILS % (MANUAL) 0 % (0-6); LYMPHOCYTES % (MANUAL) 39 % (13-45); MONOCYTES % (MANUAL) 0 % (3-13); SEGMENTED NEUTROPHILS % (MAN) 59 % (42-78); TOTAL CELLS COUNTED 100
[2020-03-03 07:26] LABS: ANISOCYTOSIS SLIGHT; PLATELET COMMENT DECREASED; SMUDGE CELLS PRESENT
--- NOTE | 2020-03-03 07:49 | ER Document Report ---
ED General - General Chief Complaint: Urinary Problem Stated Complaint: BLOOD IN URINE Time Seen by Provider: 03/03/20 05:06 Primary Care Provider: JOSE LACKEY FNP-C [Primary Care Provider] - Follow up as needed Mode of Arrival: Medic Information source: Patient Notes: Patient presents to the ER for evaluation of hematuria and urinary retention that began several days ago. The patient has been seen in this emergency room 1 day ago. He was given a prescription for Cipro and a urologist, Dr. Cline, from [facility] was consulted. The patient is supposed to follow-up with Dr. Cline this week. Upon arrival, the patient was offered a Hawthorne catheter which he refused. The nurse placed a condom catheter and the patient was able to urinate freely. He denies fever. He denies nausea or vomiting. He denies flank pain. He denies low back pain. He denies new symptoms in relation to yesterday. The patient does have a history of leukemia and has been found to have elevated white blood cell counts several times in the past. Nursing notes reviewed and past medical, social, and family histories reviewed and validated. TRAVEL OUTSIDE OF THE [place] IN LAST 30 DAYS: No - Related Data Allergies/Adverse Reactions: No Known Allergies Allergy (Verified 02/15/20 07:23) Home Medications: Cipro. Xarelto. Proscar. Flomax. Metoprolol. Vitamin B12 Past Medical History - General Information source: Patient - Social History Smoking Status: Former Smoker Frequency of alcohol use: None Drug Abuse: None Lives with: Family Family History: Reviewed & Not Pertinent Patient has suicidal ideation: No Patient has homicidal ideation: No - Past Medical History Cardiac Medical History: Reports: Hx Hypercholesterolemia, Hx Hypertension Pulmonary Medical History: Reports: Hx COPD, Hx Pneumonia EENT Medical History: Reports: None Neurological Medical History: Reports: None Endocrine Medical History: Reports: None Renal/ Medical History: Reports: Hx Benign Prostatic Hyperplasia Malignancy Medical History: Reports None GI Medical History: Reports: Hx Gastroesophageal Reflux Disease Musculoskeletal Medical History: Reports Hx Arthritis Skin Medical History: Reports None Psychiatric Medical History: Reports: None Traumatic Medical History: Reports: None Infectious Medical History: Reports: None Past Surgical History: Reports: Hx Cardiac Surgery - pacemaker, Hx Open Heart Surgery, Hx Orthopedic Surgery - feet Review of Systems - Review of Systems Notes: Constitutional: Negative for fever. HENT: Negative for sore throat. Eyes: Negative for visual changes. Cardiovascular: Negative for chest pain. Respiratory: Negative for shortness of breath. Gastrointestinal: Negative for abdominal pain, vomiting or diarrhea. Genitourinary: Positive for dysuria. Positive for hematuria. Musculoskeletal: Negative for back pain. Skin: Negative for rash. Neurological: Negative for headaches, weakness or numbness. 10 point ROS negative except as marked above and in HPI. Physical Exam - Vital signs Vitals: Temp Pulse Resp BP Pulse Ox 98 F 78 18 129/64 H 98 03/03/20 02:22 03/03/20 02:22 03/03/20 02:22 03/03/20 02:22 03/03/20 02:22 - Notes Notes: CONSTITUTIONAL: The patient is in no acute distress. He is elderly and frail appearing. SKIN: Warm, dry, and intact without rash EYES: Extraocular movements are grossly intact, clear conjunctiva HENT: Normocephalic, atraumatic, moist mucus membranes NECK: No obvious swelling, normal range of motion PULMONARY: Normal chest rise and fall. Breath sounds clear and equal bilaterally. No respiratory distress or stridor CARDIOVASCULAR: Regular rate. No murmurs, rubs, gallops. Distal extremities are warm and well perfused. ABDOMINAL: Soft, nontender NEUROLOGIC: Normal speech, moves all extremities. MUSCULOSKELETAL: No gross deformities, atraumatic PSYCHIATRIC: Normal mood and affect Course - Re-evaluation Re-evalutation: 03/03/20 07:56 Rechecked patient. Discussed with patient: results, diagnosis, treatment plan, and need for follow-up. Return to the emergency department warnings were given. All questions and concerns were addressed. The plan is agreed with and understood. Patient is stable and ready for discharge. - Vital Signs Vital signs: Temp Pulse Resp BP Pulse Ox 97.8 F 70 20 126/64 H 100 03/03/20 06:56 03/03/20 06:56 03/03/20 06:56 03/03/20 06:56 03/03/20 06:56 - Laboratory Results Result Diagrams: 03/03/20 06:50 03/03/20 06:50 Laboratory Results Interpreted: 03/03/20 03/03/20 03/03/20 06:10 06:50 06:50 WBC 22.0 H RBC 2.85 L Hgb 9.3 L Hct 26.9 L RDW 14.3 H Plt Count 142 L Monocytes % (Manual) 0 L Abs Neuts (Manual) 13.0 H Abs Lymphs (Manual) 9.0 H Abs Monocytes (Manual) 0.0 L Sodium 132.2 L Urine Protein 30 H Urine Blood LARGE H Ur Leukocyte Esterase SMALL H Critical Laboratory Results Reviewed: No Critical Results - Radiology Results Critical Radiology Results Reviewed: No Critical Results Discharge - Discharge Clinical Impression: Acute urinary retention Hematuria Qualifiers: Hematuria type: unspecified type Qualified Code(s): R31.9 - Hematuria, unspecified Disposition: HOME, SELF-CARE Instructions: Hematuria ([facility]) Additional Instructions: Continue to push fluids. It is important that you follow-up with your urologist, Dr. Cline. Return to the emergency room if you develop new or worsening symptoms. Referrals: JOSE LACKEY, [employer]-[facility] [Primary Care Provider] - Follow up as needed JUANITO CLINE MD [NO LOCAL MD] - Follow up in 3-5 days
[2020-03-03 09:20] VITALS: BP 122/84
== END 2020-03-03 09:22 | disposition home or self-care (01) ==
LOC: ER 02:12
DX: R33.9 Retention of urine, unspecified (principal); R31.9 Hematuria, unspecified; E78.00 Pure hypercholesterolemia, unspecified; I10 Essential (primary) hypertension; J44.9 Chronic obstructive pulmonary disease, unspecified; Z95.0 Presence of cardiac pacemaker; Z79.01 Long term (current) use of anticoagulants
CPT/HCPCS: 36415; 80048; 81001; 85025; 99283